=== PATIENT | female | born 1950 | race Caucasian/White ===

== ENCOUNTER 2024-03-06 12:06 | Inpatient (IN) | payer MEDICARE, MEDICAID ==
[~2024-03-06] VITALS: Ht 162.6 cm; Wt 41.1 kg
[2024-03-06 12:53] LABS: BASOPHILS % (AUTO) 0.2 % (0-1); EOSINOPHILS # (AUTO) 0.4 X10'3 (0-0.9); EOSINOPHILS % (AUTO) 4.9 % (0-6); HEMATOCRIT 32.4 % (35.0-45.0); HEMOGLOBIN 10.9 g/dl (12.0-16.0); LYMPHOCYTES # (AUTO) 1.7 X10'3 (1.1-4.8); LYMPHOCYTES % (AUTO) 19.1 % (21-51); MEAN CORPUSCULAR HEMOGLOBIN 32.2 PG (27.0-31.0); MEAN CORPUSCULAR HGB CONC 33.8 g/dL (33.0-36.5); MEAN CORPUSCULAR VOLUME 95.3 FL (78-98); MEAN PLATELET VOLUME 6.8 FL (7.4-10.4); MONOCYTES # (AUTO) 0.5 X10'3 (0-0.9); MONOCYTES % (AUTO) 5.5 % (2-12); NEUTROPHILS # (AUTO) 6.2 X10'3 (1.8-7.7); NEUTROPHILS % (AUTO) 70.3 % (42-75); PLATELET COUNT 288 X10'3 (140-440); RED CELL DISTRIBUTION WIDTH 13.8 % (11.5-14.5); WHITE BLOOD COUNT 8.8 X10'3 (4.5-11.0)
[2024-03-06 13:13] LABS: ALANINE AMINOTRANSFERASE 17 U/L (12-78); ALBUMIN 3.1 G/DL (3.4-5.0); ALKALINE PHOSPHATASE 66 IU/L (46-116); ANION GAP 5 (8-16); ASPARTATE AMINO TRANSFERASE 16 U/L (10-37); BILIRUBIN,TOTAL 0.3 MG/DL (0.1-1.0); BLOOD UREA NITROGEN 24 MG/DL (7-18); BUN/CREATININE RATIO 26.7 (10.0-20.0); CHLORIDE 109 MMOL/L (99-107); GLUCOSE 132 MG/DL (70-104); POTASSIUM 4.6 MMOL/L (3.5-5.1); SODIUM 141 MMOL/L (135-145); TOTAL CARBON DIOXIDE 27.1 MMOL/L (24-32); TOTAL PROTEIN 6.2 G/DL (6.4-8.2); eCRCL 35 ML/MIN; eGFR 61 ML/MIN
[2024-03-06 13:18] LABS: PRO BRAIN NATRIURETIC PEPTIDE 83 PG/ML (0-450)
[2024-03-06] MEDS: pantoprazole 40MG/NS 100ML BAG 100 ML IV SCH (13:51)
[2024-03-06] MEDS: octreotide inj. 500 MCG in normal saline 100ml IV soln 97.5 ML IV SCH (13:51)
[2024-03-06] MEDS: LORazepam 1 MG tablet PO ONE (14:01)
[2024-03-06] MEDS ORDERED: ondansetron/PF 4mg/2ml inj IV PRN (14:35)
[2024-03-06] MEDS ORDERED: magnesium hydroxide 30ml (MOM) UD suspension PO PRN (14:35)
[2024-03-06] MEDS ORDERED: acetaminophen 325mg tablet PO PRN (14:35)
[2024-03-06] MEDS ORDERED: LORazepam 0.5 MG tablet PO PRN (14:35)
[2024-03-06] MEDS ORDERED: morphine 2 MG/ML inj. syringe IV PRN (14:35)
[2024-03-06] MEDS ORDERED: mag hydrox/Alum hydrox/simeth 30ml oral suspension PO PRN (14:35)
[2024-03-06] MEDS: dextrose 5%-1/2 normal saline 1,000 ML IV SCH (15:08)
[2024-03-06] MEDS: LORazepam 2 mg/ml vial IV ONE (15:56)
[2024-03-06] MEDS ORDERED: TRAZ150T78 PO (17:09)
[2024-03-06] MEDS ORDERED: AMLO5TAB16 PO (17:09)
[2024-03-06] MEDS ORDERED: ALPR0.5T8 (17:09)
[2024-03-06] MEDS ORDERED: TRAM100T40 PO (17:09)
[2024-03-06] MEDS ORDERED: CYCL-920 PO (17:55)
[2024-03-06] MEDS ORDERED: ALB0.5UD NEB (17:55)
[2024-03-06] MEDS: docusate sod 100mg capsule PO SCH (19:04)
[2024-03-06 19:35] VITALS: BP 144/74; PULSE 100; RESP 19; TEMP 98.2; O2SAT 95
[2024-03-06 20:00] VITALS: BP_SYST 127; BP_SYST 144; BP_DIAS 74; BP_DIAS 78; PULSE 100; PULSE 95; RESP 20; O2SAT 98
[2024-03-06] MEDS: morphine 2 MG/ML inj. syringe IV PRN (21:58)
[2024-03-06 22:00] VITALS: BP 134/76; PULSE 94; RESP 17; TEMP 97.4; O2SAT 95
[2024-03-07] VITALS (10 sets, daily range): BP systolic 99–150; BP diastolic 50–84; PULSE 91–111; RESP 14–18; TEMP 97.9–98.8; O2SAT 94–100
[2024-03-07] MEDS: acetaminophen 325mg tablet PO PRN (01:55)
[2024-03-07 06:30] LABS: BASOPHILS % (AUTO) 0.3 % (0-1); EOSINOPHILS # (AUTO) 0.5 X10'3 (0-0.9); HEMATOCRIT 31.4 % (35.0-45.0); HEMOGLOBIN 10.9 g/dl (12.0-16.0); LYMPHOCYTES # (AUTO) 1.8 X10'3 (1.1-4.8); LYMPHOCYTES % (AUTO) 26.8 % (21-51); MEAN CORPUSCULAR HEMOGLOBIN 32.6 PG (27.0-31.0); MEAN CORPUSCULAR HGB CONC 34.7 g/dL (33.0-36.5); MEAN CORPUSCULAR VOLUME 93.9 FL (78-98); MEAN PLATELET VOLUME 7.3 FL (7.4-10.4); MONOCYTES # (AUTO) 0.5 X10'3 (0-0.9); MONOCYTES % (AUTO) 6.7 % (2-12); NEUTROPHILS % (AUTO) 59.2 % (42-75); PLATELET COUNT 243 X10'3 (140-440); RED BLOOD COUNT 3.35 X10'6 (4.20-5.60); RED CELL DISTRIBUTION WIDTH 13.6 % (11.5-14.5); WHITE BLOOD COUNT 6.8 X10'3 (4.5-11.0)
[2024-03-07 06:39] LABS: ALBUMIN 2.9 G/DL (3.4-5.0); ANION GAP 4 (8-16); BLOOD UREA NITROGEN 12 MG/DL (7-18); BUN/CREATININE RATIO 13.2 (10.0-20.0); CALCIUM 8.4 MG/DL (8.5-10.1); CHLORIDE 109 MMOL/L (99-107); CREATININE 0.91 MG/DL (0.40-0.90); GLUCOSE 144 MG/DL (70-104); POTASSIUM 3.5 MMOL/L (3.5-5.1); SODIUM 142 MMOL/L (135-145); TOTAL CARBON DIOXIDE 29.1 MMOL/L (24-32); eCRCL 35 ML/MIN; eGFR 60 ML/MIN
[2024-03-07] MEDS ORDERED: cyclobenzaprine 10mg tablet PO PRN (07:30)
[2024-03-07] MEDS ORDERED: albuterol 2.5 MG/3 ML nebule NEB SCH (08:00)
[2024-03-07] MEDS: CefTRIAXone/D5W-Rocephin 1gm 50 ML IV SCH (08:09)
[2024-03-07] MEDS: amLODIPine 5mg tablet PO SCH (08:09)
[2024-03-07] MEDS ORDERED: LIDOcaine 2% Viscous 15ml cup ONE (16:10)
[2024-03-07] MEDS ORDERED: fentaNYL/PF 50MCG/1 ML 2ML syringe ONE (16:10)
[2024-03-07] MEDS ORDERED: MIDAZolam 1 MG/ML 5ML VIAL ONE (16:10)
[2024-03-07] MEDS ORDERED: simethicone 40mg/0.6ml oral drops 30ml ONE (16:20)
[2024-03-07] MEDS: multivitamins, therapeutics tablet PO SCH (18:54)
[2024-03-07] MEDS: folic acid 1mg tablet PO SCH (18:54)
[2024-03-07] MEDS: traZODone 150mg tablet PO PRN (18:54)
[2024-03-07] MEDS: thiamine 100mg tablet PO SCH (18:54)
[2024-03-08] MEDS ORDERED: albuterol 2.5 MG/3 ML nebule NEB PRN (06:55)
[2024-03-08 07:36] LABS: BASOPHILS % (AUTO) 0.1 % (0-1); EOSINOPHILS # (AUTO) 0.4 X10'3 (0-0.9); EOSINOPHILS % (AUTO) 7.3 % (0-6); HEMATOCRIT 34.9 % (35.0-45.0); HEMOGLOBIN 12.2 g/dl (12.0-16.0); LYMPHOCYTES % (AUTO) 34.4 % (21-51); MEAN CORPUSCULAR HEMOGLOBIN 32.7 PG (27.0-31.0); MEAN CORPUSCULAR VOLUME 93.3 FL (78-98); MEAN PLATELET VOLUME 7.1 FL (7.4-10.4); MONOCYTES # (AUTO) 0.5 X10'3 (0-0.9); MONOCYTES % (AUTO) 8.2 % (2-12); NEUTROPHILS # (AUTO) 2.8 X10'3 (1.8-7.7); PLATELET COUNT 334 X10'3 (140-440); RED BLOOD COUNT 3.74 X10'6 (4.20-5.60); RED CELL DISTRIBUTION WIDTH 13.7 % (11.5-14.5); WHITE BLOOD COUNT 5.7 X10'3 (4.5-11.0)
[2024-03-08 07:42] LABS: HEMOGLOBIN A1C 5.5 % (4.5-6.2)
[2024-03-08 07:54] LABS: ALBUMIN 3.3 G/DL (3.4-5.0); ANION GAP 9 (8-16); BLOOD UREA NITROGEN 12 MG/DL (7-18); BUN/CREATININE RATIO 11.5 (10.0-20.0); CHLORIDE 105 MMOL/L (99-107); CREATININE 1.04 MG/DL (0.40-0.90); GLUCOSE 99 MG/DL (70-104); POTASSIUM 3.1 MMOL/L (3.5-5.1); SODIUM 142 MMOL/L (135-145); TOTAL CARBON DIOXIDE 28.2 MMOL/L (24-32); eCRCL 30 ML/MIN; eGFR 52 ML/MIN
[2024-03-08 08:25] VITALS: BP_SYST 124; PULSE 96
[2024-03-08] MEDS ORDERED: magnesium Cl slow-release 64mg tablet PO PRN (09:35)
[2024-03-08] MEDS ORDERED: potassium Cl 40MEQ/1/2NS 520ml 520 ML IV PRN (09:35)
[2024-03-08] MEDS ORDERED: potassium Cl 20 mEq SR tablet PO PRN (09:35)
[2024-03-08] MEDS ORDERED: magnesium sulf-water 2g/50mL 50 ML IV PRN (09:35)
[2024-03-08] MEDS ORDERED: magnesium sulf-water 4G/100mL 100 ML IV PRN (09:35)
[2024-03-08] MEDS: potassium Cl 20 mEq SR tablet PO PRN (10:50)
[2024-03-08] MEDS ORDERED: PANT40TA54 PO (11:07)
[2024-03-08] MEDS ORDERED: K and/or MAG REPLACEMENT MC SCH (20:00)
== END 2024-03-08 11:20 | disposition home or self-care (01) | DRG 378 ==
LOC: ER 12:06 → ED HOLD 14:39 → ORTHO 4S 19:10
PROVIDERS: ADMIT Internal Medicine; ATTEND Internal Medicine
PROC: 0DB78ZX Excision of Stomach, Pylorus, Via Natural or Artificial Opening Endoscopic, Diagnostic (ICD-10-PCS; principal; 2024-03-07)
DX: K92.2 Gastrointestinal hemorrhage, unspecified (principal); D62 Acute posthemorrhagic anemia; Z66 Do not resuscitate; R73.9 Hyperglycemia, unspecified; F10.10 Alcohol abuse, uncomplicated; I85.00 Esophageal varices without bleeding; K44.9 Diaphragmatic hernia without obstruction or gangrene; G89.4 Chronic pain syndrome; I10 Essential (primary) hypertension; Z86.73 Personal history of transient ischemic attack (TIA), and cerebral infarction without residual deficits; Z90.49 Acquired absence of other specified parts of digestive tract
CPT/HCPCS: 36415; 43235; 71045; 80048; 80053; 83036; 83880; 84466; 84484; 85025; 87081; 88305; 88342; 93005; 96365; 99152; 99153; 99285; A4615; A4620; G0378; J0696; J2060; J2250; J2270; J2354; J2470; J3010; J3490; J7030; J7040